=== PATIENT | male | born 1940 | race Caucasian/White ===

== ENCOUNTER 2024-03-16 11:46 | Emergency (ER) | payer MEDICARE, BC ==
[~2024-03-16] VITALS: Ht 177.8 cm; Wt 60.4 kg
[2024-03-16 15:35] LABS: BASOPHILS # (AUTO) 0.1 X10'3 (0-0.2); BASOPHILS % (AUTO) 0.4 % (0-1); EOSINOPHILS # (AUTO) 0.1 X10'3 (0-0.9); EOSINOPHILS % (AUTO) 0.3 % (0-6); HEMATOCRIT 46.3 % (42.0-52.0); HEMOGLOBIN 15.5 g/dl (14.0-17.9); LYMPHOCYTES # (AUTO) 1.4 X10'3 (1.1-4.8); LYMPHOCYTES % (AUTO) 6.8 % (21-51); MEAN CORPUSCULAR HEMOGLOBIN 32.4 PG (27.0-31.0); MEAN CORPUSCULAR HGB CONC 33.5 g/dL (33.0-36.5); MEAN CORPUSCULAR VOLUME 96.5 FL (78-98); MEAN PLATELET VOLUME 9.8 FL (7.4-10.4); MONOCYTES # (AUTO) 3.6 X10'3 (0-0.9); MONOCYTES % (AUTO) 17.7 % (2-12); NEUTROPHILS % (AUTO) 74.8 % (42-75); PLATELET COUNT 139 X10'3 (140-440); WHITE BLOOD COUNT 20.1 X10'3 (4.5-11.0)
[2024-03-16 15:59] LABS: ALBUMIN 3.7 G/DL (3.4-5.0); ANION GAP 10 (8-16); BLOOD UREA NITROGEN 17 MG/DL (7-18); BUN/CREATININE RATIO 16.8 (10.0-20.0); CALCIUM 9.2 MG/DL (8.5-10.1); CHLORIDE 103 MMOL/L (99-107); CREATININE 1.01 MG/DL (0.60-1.10); GLUCOSE 112 MG/DL (70-104); POTASSIUM 4.4 MMOL/L (3.5-5.1); SODIUM 136 MMOL/L (135-145); TOTAL CARBON DIOXIDE 23.2 MMOL/L (24-32); eCRCL 46 ML/MIN; eGFR 70 ML/MIN
[2024-03-16 16:10] LABS: PLATELET ESTIMATE DECREASED; TOTAL CELLS COUNTED 100
[2024-03-16 16:14] LABS: URIC ACID 5.1 MG/DL (3.5-7.2)
[2024-03-16] MEDS: morphine 4 MG/ML inj SYRINge IV ONE ×2 (16:15→16:54)
[2024-03-16] MEDS: ondansetron/PF 4mg/2ml inj IV ONE (16:15)
[2024-03-16] MEDS: LIDOcaine 1% W/epiNEPHrine 1:100,000 20ml vial IJ ONE ×2 (16:54)
[2024-03-16 17:59] LABS: C-REACTIVE PROTEIN 15.79 MG/DL (0.0-0.5)
[2024-03-16 19:01] LABS: CRYSTAL ID, SYN FLD CA PYROPHOSPHATE; SYNOVIAL FLUID CRYSTALS QT FEW
[2024-03-16 19:40] LABS: BF WBC COUNT 7500 /CU MM (0-1000); BFAPPEAR CLOUDY; BFCOLOR YELLOW; BFVOLUME 1 ML; LYMPHOCYTES,BODY FLUID 2 %; NEUTROPHILS,BODY FLUID 75 %
[2024-03-16 19:41] LABS: BF RBC COUNT 23000 /CU MM; MONOCYTES,BODY FLUID 23 %
[2024-03-16] MEDS ORDERED: COLC0.6C3 PO (19:54)
[2024-03-16] MEDS ORDERED: PRED10TA23 PO (19:54)
[2024-03-16 20:00] VITALS: BP 150/84; PULSE 87; RESP 15; TEMP 98.6; O2SAT 100
[2024-03-16] MEDS: dexamethasone sod phosphate 10mg/ml inj IV STA (20:03)
[2024-03-16] MEDS: colchicine 0.6mg tablet PO ONE (20:03)
[2024-03-17 08:52] LABS: BFSOURCE OTHER
== END 2024-03-16 20:21 | disposition home or self-care (01) ==
LOC: ER 11:47
DX: M25.531 Pain in right wrist (principal); M10.9 Gout, unspecified
CPT/HCPCS: 20605; 36415; 73110; 80048; 83605; 84145; 84550; 85007; 85025; 85651; 86140; 87040; 87070; 87075; 89051; 89060; 96374; 96375; 96376; 99285; A6402; J1100; J2270; J2405; J3490; Z7610; A6449